=== PATIENT | female | born 1990 | race Caucasian/White ===

== ENCOUNTER 2016-10-18 21:15 | Outpatient (CLI) | payer OTHER ==
[~2016-10-18] VITALS: Ht 175.3 cm; Wt 75.2 kg
[~2016-10-18 21:15] MED LIST: LANTUS 3 M100 UNITS1 SC; Lantus 3 ml Solostar SC; NOVOLOG PE100 UNITS/ SC; NovoLOG Pen 3 ml SC; PriLOSEC OTC PO; SYNTHROID75 MCG PO
[2016-10-18 21:52] LABS: ADD MIUA? YES; BILIRUBIN NEGATIVE; BLOOD MODERATE; COLOR YELLOW ((YELLOW)); GLUCOSE (STRIP) 50; KETONES 5; LEUKOCYTES NEGATIVE; NITRITE NEGATIVE; PROTEIN (STRIP) 100; SPECIFIC GRAVITY 1.014 (1.000-1.030); UROBILINOGEN 0.2 MG/DL (0.2-1.0)
[2016-10-18 21:54] LABS: EOSINOPHIL (%) 0.5 % (0-5); HEMATOCRIT 28.8 % (36.0-46.0); IMMATURE GRANULOCYTE (%) 0.1 % (0.0-0.7); IMMATURE GRANULOCYTE COUNT 0.1 K/uL; LYMPHOCYTE COUNT 0.9 K/uL (1.0-2.8); MCH 31.3 PG (29.0-34.0); MCHC 34.7 G/DL (30.0-36.0); MEAN PLAT.VOLUME 9.3 uM^3 (9.5-12.4); MONOCYTE (%) 6.3 % (3-12); MONOCYTE COUNT 0.5 K/uL (0-0.8); NEUTROPHIL (%) 80.7 % (45-76); NEUTROPHIL COUNT 6.2 K/uL (1.8-6.4); PLATELET COUNT 210 K/uL (156-360); RBC DIS.WIDTH-CV 12.8 % (11.8-14.6); RBC DIS.WIDTH-SD 40.6 % (39-53); WHITE BLOOD COUNT 7.6 K/uL (4.1-10.2)
[2016-10-18 21:59] LABS: BACTERIA 1+ /HPF; EPITHELIAL CELLS RARE /HPF; GRANULAR CASTS 0-5 /LPF; MUCUS TRACE /LPF; UCUL ADDED? NO; WHITE BLOOD CELLS 0-5 /HPF (0-5)
[2016-10-18 22:04] LABS: CHLORIDE 106 mEq/L (99-109); POTASSIUM 3.6 mEq/L (3.7-5.4); SODIUM 135 mEq/L (136-147)
[2016-10-18 22:06] LABS: GLUCOSE 170 mg/dL (70-99)
[2016-10-18 22:07] LABS: ANION GAP 8 MEQ/L (2-14)
[2016-10-18 22:08] LABS: TOTAL BILIRUBIN 0.9 mg/dL (0.0-1.0)
[2016-10-18 22:09] LABS: ALKALINE PHOSPHATASE 48 IU/L (3-129); GFR ESTIMATE (CALCULATED) > 59 mL/min/
[2016-10-18 22:11] LABS: UREA NITROGEN (BUN) 8 mg/dL (9-23)
[2016-10-18 22:13] LABS: LIPASE 29 U/L (1.0-51.0)
[2016-10-18 22:27] LABS: INFLUENZA A VIRAL ANTIGEN NEGATIVE; INFLUENZA B VIRAL ANTIGEN NEGATIVE
[2016-10-19 00:22] VITALS: BP 117/85
[2016-10-19] MEDS ORDERED: NOVOLOG100 UNIT/1 SCCONT (00:38)
[2016-10-19] MEDS ORDERED: PRENATAL GUMMI1 EACH PO (00:39)
[2016-10-19] MEDS ORDERED: LEVO-T112 MCG PO (00:39)
[2016-10-19] MEDS ORDERED: TYLENOL EXTRA500 MG PO (00:40)
[2016-10-19 00:53] LABS: POINT-OF-CARE METER ID UU13113801
[2016-10-19 03:10] VITALS: BP 119/64
[2016-10-19 05:32] LABS: EOSINOPHIL (%) 0.6 % (0-5); HEMATOCRIT 26.1 % (36.0-46.0); IMMATURE GRANULOCYTE (%) 0.3 % (0.0-0.7); MCH 30.8 PG (29.0-34.0); MCHC 34.1 G/DL (30.0-36.0); MCV 90.3 FL (83-99); MEAN PLAT.VOLUME 9.1 uM^3 (9.5-12.4); MONOCYTE (%) 7.7 % (3-12); MONOCYTE COUNT 0.5 K/uL (0-0.8); NEUTROPHIL (%) 74.6 % (45-76); NEUTROPHIL COUNT 4.7 K/uL (1.8-6.4); PLATELET COUNT 155 K/uL (156-360); RBC DIS.WIDTH-CV 13.1 % (11.8-14.6); RED BLOOD COUNT 2.89 M/uL (3.80-5.20); WHITE BLOOD COUNT 6.3 K/uL (4.1-10.2)
[2016-10-19 06:13] LABS: POINT-OF-CARE METER ID UU13113801
[2016-10-19 07:45] VITALS: BP 117/65
[2016-10-19] MEDS ORDERED: KEFLEX500 MG PO (08:39)
[2016-10-19] MEDS ORDERED: FERROUS SULFAT325 MG PO (08:39)
== END 2016-10-19 10:17 | disposition home or self-care (01) ==
LOC: EME 21:15 → LDRP-OP 21:15 → 2WEST 21:16
PROVIDERS: Emergency Medicine; Obstetrics & Gynecology
DX: O26.892 Other specified pregnancy related conditions, second trimester (principal); O99.012 Anemia complicating pregnancy, second trimester; D64.9 Anemia, unspecified; O21.8 Other vomiting complicating pregnancy; R10.9 Unspecified abdominal pain; R31.9 Hematuria, unspecified; N13.30 Unspecified hydronephrosis; Z3A.25 25 weeks gestation of pregnancy
CPT/HCPCS: 59025; 76705; 76770; 80053; 81003; 82803; 82948; 83690; 85025; 87086; 87502; 99281; 99284; G0378; J7030; J7120

== ENCOUNTER 2017-01-17 09:56 | Inpatient (IN) | payer OTHER ==
[~2017-01-17] VITALS: Ht 175.3 cm; Wt 83.0 kg
[2017-01-17] VITALS (27 sets, daily range): BP systolic 122–183; BP diastolic 84–110
[~2017-01-17 09:56] MED LIST changes: +FERROUS SULFAT325 MG PO; +KEFLEX500 MG PO; +LEVO-T112 MCG PO; +NOVOLOG100 UNIT/1 SCCONT; +PRENATAL GUMMI1 EACH PO; +TYLENOL EXTRA500 MG PO
[2017-01-17 11:08] LABS: EOSINOPHIL (%) 1.2 % (0-5); EOSINOPHIL COUNT 0.1 K/uL (0-0.3); HEMATOCRIT 29.3 % (36.0-46.0); IMMATURE GRANULOCYTE (%) 0.3 % (0.0-0.7); INSTRUMENT ABS NEUTROPHIL CT 3.5 K/uL; LYMPHOCYTE COUNT 1.6 K/uL (1.0-2.8); MCH 29.4 PG (29.0-34.0); MCHC 32.8 G/DL (30.0-36.0); MCV 89.9 FL (83-99); MEAN PLAT.VOLUME 10.7 uM^3 (9.5-12.4); MONOCYTE COUNT 0.6 K/uL (0-0.8); NEUTROPHIL (%) 60.7 % (45-76); NEUTROPHIL COUNT 3.5 K/uL (1.8-6.4); PLATELET COUNT 184 K/uL (156-360); RBC DIS.WIDTH-CV 12.7 % (11.8-14.6); RBC DIS.WIDTH-SD 41.6 % (39-53); RED BLOOD COUNT 3.26 M/uL (3.80-5.20); WHITE BLOOD COUNT 5.7 K/uL (4.1-10.2)
[2017-01-17 11:17] LABS: ANION GAP 7 MEQ/L (2-14); CHLORIDE 105 MEQ/L (99-109); POTASSIUM 4.3 MEQ/L (3.7-5.4); SAMPLE HEMOLYSIS CHECK 0; SAMPLE ICTERIC CHECK 0; SAMPLE LIPEMIA CHECK 0; SODIUM 137 MEQ/L (136-147); TOTAL BILIRUBIN 0.6 MG/DL (0.0-1.0)
[2017-01-17 11:23] LABS: ALKALINE PHOSPHATASE 101 IU/L (3-129); GFR ESTIMATE (CALCULATED) > 59 mL/min/; GLUCOSE 69 mg/dL (70-99); UREA NITROGEN (BUN) 9 mg/dL (9-23)
[2017-01-17 12:15] LABS: UR CREATININE CONCENTRATION 73.7 MG/DL
[2017-01-17 19:52] LABS: POINT-OF-CARE METER ID UU13113801
[2017-01-17 21:10] LABS: POINT-OF-CARE METER ID UU13113801
[2017-01-17 21:32] LABS: POINT-OF-CARE METER ID UU13113801
[2017-01-18] VITALS (36 sets, daily range): BP systolic 89–180; BP diastolic 50–108
[2017-01-18 00:14] LABS: POINT-OF-CARE METER ID UU13113801
[2017-01-18 04:33] LABS: POINT-OF-CARE METER ID UU13113801
[2017-01-18 06:43] LABS: HEMATOCRIT 27.8 % (36.0-46.0); MCH 30.2 PG (29.0-34.0); MCHC 33.8 G/DL (30.0-36.0); MCV 89.4 FL (83-99); PLATELET COUNT 160 K/uL (156-360); RBC DIS.WIDTH-CV 12.6 % (11.8-14.6); RBC DIS.WIDTH-SD 40.7 % (39-53); RED BLOOD COUNT 3.11 M/uL (3.80-5.20)
[2017-01-18 06:55] LABS: WHITE BLOOD COUNT 7.8 K/uL (4.1-10.2)
[2017-01-18 07:02] LABS: ALKALINE PHOSPHATASE 108 IU/L (3-129); ANION GAP 9 MEQ/L (2-14); CHLORIDE 105 MEQ/L (99-109); GFR ESTIMATE (CALCULATED) > 59 mL/min/; GLUCOSE 115 mg/dL (70-99); SAMPLE HEMOLYSIS CHECK 0; SAMPLE ICTERIC CHECK 0; SAMPLE LIPEMIA CHECK 0; SODIUM 136 MEQ/L (136-147); TOTAL BILIRUBIN 0.7 MG/DL (0.0-1.0); UREA NITROGEN (BUN) 8 mg/dL (9-23)
[2017-01-18 10:17] LABS: POINT-OF-CARE METER ID UU13113801
[2017-01-18 10:59] LABS: MAGNESIUM 5.7 mg/dl (1.3-2.7)
[2017-01-18 11:48] LABS: POINT-OF-CARE METER ID UU13113801
[2017-01-18 14:24] LABS: POINT-OF-CARE METER ID UU13113801
[2017-01-18 16:30] LABS: POINT-OF-CARE METER ID UU13113801
[2017-01-18 16:58] LABS: POINT-OF-CARE METER ID UU13113692
[2017-01-18 21:54] LABS: POINT-OF-CARE METER ID UU13113801
[2017-01-18 23:09] LABS: POINT-OF-CARE METER ID UU13113801
[2017-01-19] VITALS (16 sets, daily range): BP systolic 132–175; BP diastolic 72–95
[2017-01-19 00:13] LABS: POINT-OF-CARE METER ID UU13113801
[2017-01-19 01:34] LABS: POINT-OF-CARE METER ID UU13113801
[2017-01-19 02:53] LABS: POINT-OF-CARE METER ID UU13113801
[2017-01-19 04:01] LABS: POINT-OF-CARE METER ID UU13113801
[2017-01-19 06:11] LABS: POINT-OF-CARE METER ID UU13113801
[2017-01-19 08:28] LABS: POINT-OF-CARE METER ID UU13113801
[2017-01-19 14:14] LABS: POINT-OF-CARE METER ID UU13113675
[2017-01-19 22:06] LABS: POINT-OF-CARE METER ID UU13113801
[2017-01-20] VITALS (9 sets, daily range): BP systolic 130–156; BP diastolic 66–89
[2017-01-20 06:44] LABS: EOSINOPHIL (%) 0.1 % (0-5); IMMATURE GRANULOCYTE (%) 0.5 % (0.0-0.7); IMMATURE GRANULOCYTE COUNT 0.1 K/uL; INSTRUMENT ABS NEUTROPHIL CT 14.6 K/uL; LYMPHOCYTE COUNT 2.2 K/uL (1.0-2.8); MCH 29.7 PG (29.0-34.0); MCHC 33.3 G/DL (30.0-36.0); MCV 89.2 FL (83-99); MEAN PLAT.VOLUME 10.4 uM^3 (9.5-12.4); MONOCYTE COUNT 1.3 K/uL (0-0.8); NEUTROPHIL (%) 80.1 % (45-76); NEUTROPHIL COUNT 14.6 K/uL (1.8-6.4); PLATELET COUNT 178 K/uL (156-360); RBC DIS.WIDTH-CV 12.9 % (11.8-14.6); RBC DIS.WIDTH-SD 41.6 % (39-53); RED BLOOD COUNT 2.69 M/uL (3.80-5.20)
[2017-01-20 06:46] LABS: WHITE BLOOD COUNT 18.2 K/uL (4.1-10.2)
[2017-01-20 07:52] LABS: POINT-OF-CARE METER ID UU13113801
[2017-01-20 10:07] LABS: POINT-OF-CARE METER ID UU13113801
[2017-01-20 11:43] LABS: POINT-OF-CARE METER ID UU13113801
[2017-01-20 15:52] LABS: POINT-OF-CARE METER ID UU13113801
[2017-01-20 20:14] LABS: POINT-OF-CARE METER ID UU13113801
[2017-01-20 21:04] LABS: POINT-OF-CARE METER ID UU13113801
[2017-01-20 22:14] LABS: POINT-OF-CARE METER ID UU13113801
[2017-01-21 02:15] LABS: POINT-OF-CARE METER ID UU13113801
[2017-01-21 03:30] VITALS: BP 140/83
[2017-01-21 06:35] LABS: POINT-OF-CARE METER ID UU13113801
[2017-01-21 07:06] LABS: EOSINOPHIL (%) 0.6 % (0-5); EOSINOPHIL COUNT 0.1 K/uL (0-0.3); HEMATOCRIT 20.4 % (36.0-46.0); IMMATURE GRANULOCYTE (%) 0.7 % (0.0-0.7); IMMATURE GRANULOCYTE COUNT 0.1 K/uL; INSTRUMENT ABS NEUTROPHIL CT 9.3 K/uL; LYMPHOCYTE COUNT 2.2 K/uL (1.0-2.8); MCH 29.6 PG (29.0-34.0); MCHC 32.8 G/DL (30.0-36.0); MCV 90.3 FL (83-99); MEAN PLAT.VOLUME 10.5 uM^3 (9.5-12.4); MONOCYTE (%) 6.2 % (3-12); MONOCYTE COUNT 0.8 K/uL (0-0.8); NEUTROPHIL (%) 74.9 % (45-76); NEUTROPHIL COUNT 9.3 K/uL (1.8-6.4); PLATELET COUNT 153 K/uL (156-360); RBC DIS.WIDTH-CV 13.1 % (11.8-14.6); RBC DIS.WIDTH-SD 42.9 % (39-53); RED BLOOD COUNT 2.26 M/uL (3.80-5.20)
[2017-01-21 07:17] LABS: WHITE BLOOD COUNT 12.4 K/uL (4.1-10.2)
[2017-01-21 08:03] VITALS: BP 154/96
[2017-01-21 11:15] LABS: POINT-OF-CARE METER ID UU13113801
[2017-01-21 12:45] VITALS: BP 151/83
[2017-01-21 13:02] LABS: POINT-OF-CARE METER ID UU13113801
[2017-01-21 16:13] VITALS: BP 143/85
[2017-01-21 16:35] LABS: POINT-OF-CARE METER ID UU13113801
[2017-01-21 19:15] VITALS: BP 157/90
[2017-01-21 20:23] LABS: POINT-OF-CARE METER ID UU13113801
[2017-01-22] VITALS (11 sets, daily range): BP systolic 134–191; BP diastolic 79–108
[2017-01-22 00:12] LABS: POINT-OF-CARE METER ID UU13113801
[2017-01-22 00:44] LABS: POINT-OF-CARE METER ID UU13113801
[2017-01-22 04:38] LABS: POINT-OF-CARE METER ID UU13113692
[2017-01-22 08:41] LABS: POINT-OF-CARE METER ID UU13113801
[2017-01-22 12:05] LABS: POINT-OF-CARE METER ID UU13113692
[2017-01-22 19:30] LABS: POINT-OF-CARE METER ID UU13113692
[2017-01-22 19:30] LABS: POINT-OF-CARE METER ID UU13113692
[2017-01-22 21:22] LABS: POINT-OF-CARE METER ID UU13113692
[2017-01-23 00:38] VITALS: BP 144/82
[2017-01-23 00:51] LABS: POINT-OF-CARE METER ID UU13113801
[2017-01-23 03:53] VITALS: BP 161/82
[2017-01-23 04:16] LABS: POINT-OF-CARE METER ID UU13113801
[2017-01-23 07:09] VITALS: BP 192/102
[2017-01-23 07:11] VITALS: BP 180/90
[2017-01-23 09:01] VITALS: BP 107/69
[2017-01-23 10:35] LABS: POINT-OF-CARE METER ID UU13113692
[2017-01-23 10:37] LABS: EOSINOPHIL (%) 4.2 % (0-5); EOSINOPHIL COUNT 0.4 K/uL (0-0.3); HEMATOCRIT 24.8 % (36.0-46.0); IMMATURE GRANULOCYTE (%) 0.9 % (0.0-0.7); IMMATURE GRANULOCYTE COUNT 0.1 K/uL; INSTRUMENT ABS NEUTROPHIL CT 6.5 K/uL; LYMPHOCYTE COUNT 2.3 K/uL (1.0-2.8); MCHC 32.3 G/DL (30.0-36.0); MCV 89.9 FL (83-99); MEAN PLAT.VOLUME 9.6 uM^3 (9.5-12.4); MONOCYTE (%) 5.4 % (3-12); MONOCYTE COUNT 0.5 K/uL (0-0.8); NEUTROPHIL COUNT 6.5 K/uL (1.8-6.4); RBC DIS.WIDTH-CV 13.2 % (11.8-14.6); RBC DIS.WIDTH-SD 42.7 % (39-53); WHITE BLOOD COUNT 9.8 K/uL (4.1-10.2)
[2017-01-23 10:44] LABS: PLATELET COUNT 260 K/uL (156-360); RED BLOOD COUNT 2.76 M/uL (3.80-5.20)
[2017-01-23 10:47] LABS: GFR ESTIMATE (CALCULATED) > 59 mL/min/
[2017-01-23 10:56] VITALS: BP 133/81
[2017-01-23 11:28] LABS: POINT-OF-CARE METER ID UU13113692
[2017-01-23 11:28] LABS: POINT-OF-CARE METER ID UU13113692
[2017-01-23] MEDS ORDERED: ENDOCET 5-3251 EACH PO (12:21)
[2017-01-23] MEDS ORDERED: MOTRIN600 MG PO (12:21)
[2017-01-23] MEDS ORDERED: LABETALOL HCL200 MG PO (12:23)
[2017-01-23] MEDS ORDERED: PROCARDIA XL30 MG PO (12:24)
== END 2017-01-23 19:05 | disposition home or self-care (01) | DRG 765 ==
LOC: LDRP-OP → 2WEST 09:57 → LDRP-OP 03-05 10:30
PROVIDERS: Nurse Practitioner; Obstetrics & Gynecology
PROC: 3E0P7GC Introduction of Other Therapeutic Substance into Female Reproductive, Via Natural or Artificial Opening (ICD-10-PCS; 2017-01-17)
PROC: 10907ZC Drainage of Amniotic Fluid, Therapeutic from Products of Conception, Via Natural or Artificial Opening (ICD-10-PCS; 2017-01-18)
PROC: 3E0S3BZ Introduction of Anesthetic Agent into Epidural Space, Percutaneous Approach (ICD-10-PCS; 2017-01-18)
PROC: 10D00Z1 Extraction of Products of Conception, Low, Open Approach (ICD-10-PCS; principal; 2017-01-19)
DX: O15.1 Eclampsia complicating labor (principal); O24.02 Pre-existing type 1 diabetes mellitus, in childbirth; D62 Acute posthemorrhagic anemia; O99.284 Endocrine, nutritional and metabolic diseases complicating childbirth; Z37.0 Single live birth; J45.909 Unspecified asthma, uncomplicated; O99.344 Other mental disorders complicating childbirth; F41.9 Anxiety disorder, unspecified; E03.9 Hypothyroidism, unspecified; O99.02 Anemia complicating childbirth; O13.4 Gestational [pregnancy-induced] hypertension without significant proteinuria, complicating childbirth; O66.5 Attempted application of vacuum extractor and forceps; O75.81 Maternal exhaustion complicating labor and delivery; E10.9 Type 1 diabetes mellitus without complications; D50.8 Other iron deficiency anemias; Z3A.38 38 weeks gestation of pregnancy; O64.8XX1 Obstructed labor due to other malposition and malpresentation, fetus 1; Z79.4 Long term (current) use of insulin; Z96.41 Presence of insulin pump (external) (internal); O61.0 Failed medical induction of labor; O99.013 Anemia complicating pregnancy, third trimester
CPT/HCPCS: 80053; 82565; 82570; 82948; 83735; 84156; 84450; 84460; 85025; 85027; C1755; G0378; J0690; J1100; J2175; J2274; J2405; J2795; J3010; J3475; J7120